=== PATIENT | male | born 1985 ===

== ENCOUNTER 2017-07-24 12:01 | Observation (INO) | payer SELFPAY ==
[~2017-07-24] VITALS: Ht 167.6 cm; Wt 79.6 kg
--- NOTE | ~2017-07-24 | HP ---
ADMIT: 07/24/2017 RM/LOC: [facility] MR#: [id number] [id number] [place], [place] [address] [address] [facility] [address] [place] [address] History and Physical SEX: M AGE: 31 : 1985 DATE OF SERVICE: 07/24/2017 CHIEF COMPLAINT: Probable penile fracture. HISTORY OF PRESENT ILLNESS: The patient is a pleasant 31-year-old male, who does not speak [place]ian but his is a nurse, speaks fluent [place] and assists with our interpretation. The patient has a tendency with erections, bend his penis toward his abdomen. Typically he will experience a popping sensation at the base of the penis. He has had subcu implant dorsally previously. This has never been an issue, but today he was doing the same thing after drinking about 12 beers. He felt a pop about midshaft, did experience prompt detumescence as well as swelling and some bruising of the right lateral aspect of the penile shaft at about midway down. states that the swelling has gotten a bit worse. He is tender on the right. Not tender on the left. He has been able to void, his urine is clear. There was no blood at the urethral meatus. The ER staff examined the patient, was concerned about penile fracture, and I was called in for consultation. PAST MEDICAL HISTORY: Negative. MEDICATIONS: None. ALLERGIES: NONE. PAST SURGICAL HISTORY: None. Patient is uncircumcised. PHYSICAL EXAMINATION: GENERAL: The patient is uncomfortable. VITAL SIGNS: Stable. HEART: Regular. CHEST: Clear. ABDOMEN: Soft, nontender, and nondistended. GENITOURINARY: The patient is uncircumcised. There is no phimosis. Urethral meatus was visualized, normal caliber without bloody discharge. There is significant soft tissue swelling and edema as well as slight ecchymosis of the right lateral aspect of the penile shaft. This is most noticeable laterally and somewhat ventrally. This is where the patient is tender to palpation about mid shaft. There is a subcutaneous implant dorsally which seems to be un-involved. There was no evidence of cellulitis. The base of the penis is palpably normal. There is no tenderness here. The whole entire left lateral aspect of the penile shaft is not tender. There is a little bit of soft tissue edema but no ecchymosis. There is no ecchymosis or swelling ventrally. Testes descended bilaterally without masses or tenderness. LABORATORY DATA: UA is pending. White blood cell count 4.6, hematocrit 48.6, and platelet count 253. ASSESSMENT: Probable penile fracture with associated soft tissue edema and ecchymosis. ADMIT: 07/24/2017 RM/LOC: [facility] MR#: [id number] [address] [place] [address] History and Physical SEX: M AGE: 31 : 1985 PLAN: I have recommended that we proceed to the operating room for penile exploration, repair of probable penile fracture. We will also perform a diagnostic flexible cystoscopy at the time of intervention to clear the urethra. I will likely place a Galarza catheter prior to our penile exploration. Risks and benefits have been discussed to include complications of anesthesia, continued bleeding, hematoma formation, the risk of infection, which may require extended course of antibiotic therapy or repeat operation. We have discussed the absolute necessity of no sexual intercourse for 6-8 weeks. We have discussed issues of Peyronie's disease and penile curvature as well as pain with erection. I think the risk with repair in terms of Peyronie's disease is less as opposed to of we just left the patient alone. The patient voices understanding of all risks. He wishes as well as his to proceed to the operating room. Consent has been obtained. Preoperative Ancef will be administered. Sanju Ascencio MD/ torie JOB #: [id number] CC: Sanju Ascencio, Attending Physician Sanju Ascencio, Family Physician
--- NOTE | ~2017-07-24 | OR ---
ADMIT: 07/24/2017 RM/LOC: [address] [facility] MR#: [id number] [address] [facility] [address] [place], [place] [address] [address] [facility] [address] [place] [address] Operative/Delivery Room Report SEX: M AGE: 31 : 1985 SURGERY DATE: 07/24/2017 SURGEON: Sanju Ascencio MD PREOPERATIVE DIAGNOSIS: Probable penile fracture. POSTOPERATIVE DIAGNOSIS: Penile fracture with rupture of the right corporal body. PROCEDURES: 1. Diagnostic flexible cystoscopy with Galarza catheter placement. 2. Penile exploration and repair of right corporal fracture. ANESTHESIA: General. INDICATIONS: The patient is a 31-year-old male. He was masturbating, bent his penis back, heard a snap, swelling fairly promptly with detumescence. On exam, he does have some ecchymosis and swelling involving the right lateral aspect of the penile shaft. This mostly suggested of rupture of corporal body consistent with penile fracture. The patient is taken to the operating room after informed consent has been obtained. Preoperative antibiotics given. PROCEDURE IN DETAIL: The patient taken to OR #1, placed on the table in supine position. After good anesthesia, his lower abdomen, groin, and genitalia prepped and draped in usual sterile fashion. A time-out was taken for patient name, date of , planned procedure, preoperative antibiotics, and allergies. A 17-[place] Islander flexible cystoscope was placed in the urethra. Urethra was closely inspected. There was no evidence of mucosal injury. There was no evidence of submucosal hemorrhage. The urethral caliber was normal over its entire course. The external urethral sphincter was intact. The prostate was not obstructing. The scope was withdrawn. A 16-[place] Islander Galarza catheter was passed into the bladder, 10 mL instilled in the Galarza balloon. The bladder was decompressed and the catheter plug was used to plug the Galarza catheter. A circumferential subcoronal incision was then made with a #15 blade. This was continued down through the superficial subcutaneous tissues. All along the right side, we did encounter some staining of these dartos tissues consistent with hematoma. The hematoma interestingly was limited to the base of the penis, therefore likely did not violate Mazarieogs's fascia. We did go ahead and used both blunt and sharp dissection to identify a plane, basically degloving the penis in a circumferential manner down to the base of the penis. At this point, there was evidence of hematoma involving the right corporal body. The left corporal body and spongiosal tissue surrounding the urethra were quite unremarkable in appearance. I did have to work distally identifying the plane along the surface of the right corpora. Once we had identified this plane, we worked more proximally until we identified a ADMIT: 07/24/2017 RM/LOC: [address] [facility] MR#: [id number] [address] [address] [place] [address] Operative/Delivery Room Report SEX: M AGE: 31 : 1985 contained hematoma which was drained. I did go ahead and place a tourniquet as there was some bleeding from this corporal rupture. A 10-Sol[place] Islander red rubber catheter was placed gently around the base of the penis under just gentle traction to limit our bleeding. This greatly improved our exposure. I was able to carry our dissection back and we finally reached the area of corporal rupture. It extended for approximately 1.5 cm. Started quite close to the junction between the corporal body and the corpora spongiosum and then extended laterally in a transverse fashion. I was able to identify both the proximal and distal edge of this corporal rupture. I did some dissection and identified the medial and lateral edge. I did go ahead and place a 5-0 PDS suture as a stay suture in the medial aspect of our corporal rupture. I then followed along and I placed a stay suture along the lateral aspect of our corporal rupture. This basically identified things very nicely. I then beginning medially, closed the corporal rupture with a running 5-0 PDS suture. Everything came together very nicely. The suture was tied and trimmed. I did go ahead and tied down the stay sutures as I did feel they would assist with some tissue apposition. There was one area medially, just slightly closer to the corpora spongiosum which did ooze a little bit with removal of the tourniquet. I did place an additional 5-0 interrupted PDS here. At this point, we had very nice hemostasis. It looked like we had very nice reapproximation of the tunica albuginea. I did go ahead and reapproximate some filmy connective tissue over our repair. At this point, we had very nice hemostasis. At this point, I did go ahead and inspect the entire penile shaft. There were some focal bleeding points which were controlled with electrocautery. Once I was satisfied with hemostasis, we did inspect this subcutaneous tissue which was just basically infiltrated with blood. I did not find a specific loculated fluid collection or hematoma that would allow for effective drainage. I do feel that this will just have to gradually resolve on its own. Once I was satisfied with hemostasis, I did go ahead and closed our circumferential incision with interrupted 3-0 chromic sutures. Once I had completed our closure, the foreskin was placed back into anatomical position. There was still some soft tissue edema and swelling of the right side of the penile shaft. Again our ecchymoses stopped at the base of the penis. At this point, the wound was cleansed with sterile water. All sponge and needle counts were correct x1. Estimated blood loss at this point 50 mL. ADMIT: 07/24/2017 RM/LOC: [address] [facility] MR#: [id number] [address] [address] [address] [place] [address] Operative/Delivery Room Report SEX: M AGE: 31 : [address] just a very loose dressing of 2 inch Hetal and some Coban. We did go ahead and leave the Galarza catheter to gravity drainage. Once the dressing was completed and the catheter was left to gravity drainage, we did do sponge and needle count again and they were correct x2. The patient was awoken from anesthesia, extubated uneventfully, and transferred to recovery room in stable condition. He will be observed on an inpatient basis. If doing well tomorrow, may consider discharge home. We will continue him on a short course of IV antibiotic therapy while in bed rest with ice packs to the groin tonight. I do expect some oozing from the coronal incision given the degree of this hematoma. We will observe the patient closely. If doing well, may be home tomorrow. Sanju Ascencio MD/ torie JOB #: [id number] CC: Sanju Ascencio, Attending Physician Sanju Ascencio, Family Physician
--- NOTE | ~2017-07-24 | ER ---
ADMIT: 07/24/2017 RM/LOC: [address] [facility] MR#: [id number] [address] [facility] [address] [place], [place] [address] [address] [facility] [address] [place] [address] Emergency Room Report SEX: M AGE: 31 : 1985 DATE: 07/24/2017 CHIEF COMPLAINT: Penile pain. HISTORY OF PRESENT ILLNESS: The patient is a 31-year-old male, comes in complaining of penile pain. He states that he was playing with his penis this morning when he bent it ventrally and heard a pop and had immediate pain and began swelling. He states he has done this maneuver before, but has never sustained swelling or pain like this. This happened approximately an hour prior to arrival. He denies any testicular pain or swelling. He does not have any abdominal pain. No nausea, vomiting, or diarrhea. The patient has been able to urinate since this occurred without difficulty. PAST MEDICAL HISTORY: Negative. MEDICATIONS: None. ALLERGIES: NONE. SOCIAL HISTORY: Admits to recent alcohol intake. PHYSICAL EXAMINATION: GENERAL: The patient is alert. No distress. HEENT: Head is atraumatic. Airway patent. HEART: Regular rate and rhythm. LUNGS: Clear to auscultation. ABDOMEN: Soft. GENITALIA: Examination of his penis reveals he does have a metal implant on the ventral surface of his penis. He does have diffuse swelling on the shaft of his penis with some ecchymosis and tenderness. He is uncircumcised and there are no other lesions, and testicular exam is unremarkable. EMERGENCY DEPARTMENT COURSE: Based on examination, I do believe he fractured his penis and I contacted Dr. Ascencio, who is on for Urology, who came in to see the patient. Plan at this time is to have the patient go to the OR for surgical repair of his fractured penis. The patient is sent to the OR in stable condition. DIAGNOSIS: Fractured penis. Leroy Hilliard MD/ torie JOB #: [id number] CC: Sanju Ascencio MD, Attending Physician Sanju Ascencio MD, Family Physician
[2017-07-26] MEDS ORDERED: NORCO 5-325 TA1 EACH PO (17:19)
[2017-07-26] MEDS ORDERED: KEFLEX-DPS500 MG PO (17:19)
== END 2017-07-25 13:35 | disposition home or self-care (01) ==
LOC: ER 12:01 → SSS 13:00 → 6PED 15:55
PROVIDERS: ADMIT Urology
PROC: 0VQS0ZZ Repair Penis, Open Approach (ICD-10-PCS; principal; 2017-07-24)
DX: S39.840A Fracture of corpus cavernosum penis, initial encounter (principal); F17.200 Nicotine dependence, unspecified, uncomplicated